=== PATIENT | female | born 1990 | race Caucasian/White ===

== ENCOUNTER 2024-08-04 20:42 | Emergency (ER) | payer BC ==
[2024-08-04] MEDS ORDERED: KETOROLAC 30 MG/ML INJ ONE (22:03)
[2024-08-04] MEDS ORDERED: ONDANSETRON 4 MG/2 ML VIAL ONE (22:03)
[2024-08-04] MEDS ORDERED: NA CHLORIDE 0.9% 1,000 ML ONE (22:03)
[2024-08-04 22:08] LABS: Absolute Eosinophils 0.1 K/uL (0-0.5); Absolute Lymphocytes (CBC) 2.2 K/uL (0.7-4.9); Absolute Monocytes 0.7 K/uL (0.1-1.3); Absolute Neutrophil 4.6 K/uL (1.8-8.0); Basophils % 0.5 % (0-1.3); Eosinophils % 1.4 % (0-4.4); Hematocrit 39.7 % (36.0-45.0); Hemoglobin 13.2 g/dL (12.0-15.0); Lymphocytes % 29.3 % (15.3-44.8); MCH 32.2 pg (27.0-35.0); MCHC 33.3 g/dL (32.0-36.0); MCV 96.6 fL (80-100); MPV 9.2 fL (7.6-11.3); Monocytes % 8.7 % (3.3-12.3); Neutrophils % 60.1 % (41.7-73.7); Platelets 221 thou/uL (152-406); RBC Red Blood Cell Count 4.11 M/uL (3.86-4.86); Red Cell Distribution Width 12.8 % (12.1-15.2)
[2024-08-04 22:22] LABS: Anion Gap 8.9 mEq/L (5.0-15.0); Bilirubin Total 0.5 mg/dL (0.2-1.0); Globulin 3.9 g/dL (2.3-3.5); Potassium 3.9 mEq/L (3.5-5.1); Protein, Total 7.9 g/dL (6.4-8.2)
[2024-08-04 22:36] LABS: Specific Gravity 1.027 (1.005-1.030)
[2024-08-04 22:42] LABS: Specific Gravity 1.027 (1.005-1.030); Sqamous Epithelial <5 /HPF (None Seen); Urine Bacteria None Seen /HPF (<20); Urine Bilirubin NEGATIVE (Negative); Urine Blood Negative (Negative); Urine Clarity Clear (Clear); Urine Color Light-Yellow (Yellow); Urine Culture Reflex Order NOT NEEDED; Urine Glucose NEGATIVE (Negative); Urine Ketones NEGATIVE (Negative); Urine Microscopic Reflex YN ORDER UMIC; Urine Mucus Slight /HPF (None Seen); Urine Nitrite NEGATIVE (Negative); Urine Protein NEGATIVE (Negative); Urine RBC <5 /HPF (None Seen); Urine Urobilinogen Normal (Normal); Urine WBC <5 /HPF (<5); Urine pH 5.5 (5.0-7.0)
--- NOTE | 2024-08-04 23:34 | RAD REPORT ---
EXAM DESCRIPTION: Transvaginal Study Probe CLINICAL HISTORY: 34 years Female, Possible migrated IUD;Abd pain TECHNIQUE: Real-time transvaginal sonographic imaging of the pelvis was performed. COMPARISON: None. FINDINGS: UTERUS: Uterus measures 8.8 x 4.6 x 5.2 cm. No focal myoma. ENDOMETRIUM: IUD in satisfactory position. No endometrial free fluid. OVARIES: The ovaries are normal in size with physiologic follicles; for which no further workup is wa rranted. Right ovary measures 3.3 x 1.9 x 3.1 cm; left ovary measures 2.3 x 1.2 x 1.4 cm. Doppler color flow with normal arterial and venous waveforms are seen within bilateral ovaries. ADNEXA: No adnexal mass or abnormality. FREE FLUID: No free fluid in the pelvic cul-de-sac. IMPRESSION: 1. IUD in satisfactory position. 2. Otherwise, negative pelvic ultrasound. Electronically signed by: Floyd Mead MD 08/04/2024 11:30 PM CDT N Due to temporary technical issues with the PACS/[employer] reporting system, reports are being signed by the in-house radiologist without review as a courtesy to ensure prompt reporting the interpreting radiologist is fully responsible for the content of the report. Transcribed Date/Time: 08/04/2024 11:34 PM
[2024-08-05] MEDS ORDERED: ONDANSETRON 4 MG/2 ML VIAL ONE (00:03)
[2024-08-05] MEDS ORDERED: MORPHINE 4 MG/ML SYR ONE (00:04)
--- NOTE | 2024-08-05 01:52 | RAD REPORT ---
CT ABDOMEN PELVIS WITH IV CONTRAST CLINICAL INDICATION: Abdominal pain. History of Iam's and . COMPARISON: Pelvic ultrasound 08/04/2024 TECHNIQUE: CT images of the abdomen and pelvis obtained following administration of intravenous contr ast. Multiplanar reformats were provided. Dose-optimization techniques such as automated exposure control, iterative reconstruction, and mA and/or kV adjustment for patient size was utilized for this examination. FINDINGS: LOWER CHEST: Unremarkable. LIVER: No suspicious mass lesion. BILIARY: Unremarkable. PANCREAS: Unremarkable. SPLEEN: Unremarkable. ADRENALS: Unremarkable. KIDNEYS/URETERS: Small 2 mm nonobstructive stone at upper pole of left kidney. No hydroureteronephros is. No suspicious mass lesion. BOWEL/STOMACH: Multiple mildly prominent small bowel loops without focal obstruction, likely reflecti ng ileus. APPENDIX: Appendix is not definitively visualized. No focal inflammation in right lower quadrant to s uggest acute appendicitis. MESENTERY/PERITONEUM: Small amount of free fluid in pelvis is nonspecific and can be physiologic for a female patient. RETROPERITONEUM: No adenopathy. URINARY BLADDER: Unremarkable. REPRODUCTIVE: Intrauterine device in place. VASCULAR: No aortic aneurysm. Prominent vascularity at the pelvis is a nonspecific finding and can be seen in pelvic congestion syndrome. ABDOMINAL/PELVIC WALL: Unremarkable. Umbilical ring in place. BONES: No acute findings Disc bulge at L4-5 and L5-S1 levels with associated borderline central canal narrowing. No compression deformity, nor osteolytic or sclerotic lesion. IMPRESSION: 1. Nonobstructive left nephrolithiasis. 2. Multiple mildly prominent small bowel loops without focal obstruction, likely reflecting ileus. 3. Small amount of free fluid in pelvis is nonspecific and can be physiologic for a female patient. 4. Prominent vascularity at the pelvis is a nonspecific finding and can be seen in pelvic congestio n syndrome. Electronically signed by: Mirta Rojo MD 08/05/2024 01:46 AM CDT Due to temporary technical issues with the PACS/[employer] reporting system, reports are being zhao d by the in-house radiologist without review as a courtesy to ensure prompt reporting the interpreting radiologist is fully responsible for the content of the report. Transcribed Date/Time: 08/05/2024 1:52 AM
--- NOTE | 2024-08-05 02:00 | ER ---
Nurse's Notes [facility] Name: Chio Ward Age: 34 yrs Sex: Female : 1990 Arrival Date: 08/04/2024 Time: 20:42 Bed 13 Private MD: Diagnosis: Lower abdominal pain, unspecified;Nephrolithiasis Presentation: 08/04 21:04 Chief complaint: Patient states: lower abdominal pain beginning 1330 radiating to right lg3 pelvis and back. Coronavirus screen: Client denies travel out of the [place] in the last 14 days. At this time, the client does not indicate any symptoms associated with coronavirus-19. Ebola Screen: No symptoms or risks identified at this time. Initial Sepsis Screen: Does the patient meet any 2 criteria? No. Patient's initial sepsis screen is negative. Does the patient have a suspected source of infection? No. Patient's initial sepsis screen is negative. Risk Assessment: Do you want to hurt yourself or someone else? Patient reports no desire to harm self or others. Onset of symptoms was August 04, 2024. 21:04 Method Of Arrival: Ambulatory lg3 21:04 Acuity: FLORESITA 3 lg3 Triage Assessment: 21:06 General: Appears in no apparent distress. comfortable, Behavior is calm, cooperative. lg3 Pain: Complains of pain in suprapubic area, right inguinal area and right iliac crest Pain radiates to low back area. EENT: No deficits noted. No signs and/or symptoms were reported regarding the EENT system. Neuro: No deficits noted. Ledesma Agitation-Sedation Scale (RASS): 0 - Alert and Calm Level of Consciousness is awake, alert, obeys commands, Oriented to person, place, time, situation. Cardiovascular: No deficits noted. Denies chest pain, shortness of breath, Capillary refill < 3 seconds Clubbing of nail beds is absent JVD is absent Patient's skin is warm and dry. Respiratory: No deficits noted. Airway Respiratory effort is even, unlabored, Respiratory pattern is regular, symmetrical. GI: Abdomen is flat, non-distended, Reports lower abdominal pain, cramping. : No signs and/or symptoms were reported regarding the genitourinary system. Derm: No deficits noted. No signs and/or symptoms reported regarding the dermatologic system. Skin is intact, is healthy with good turgor, Skin is dry, Skin is normal, Skin temperature is warm. Musculoskeletal: No deficits noted. No signs and/or symptoms reported regarding the musculoskeletal system. Circulation, motion, and sensation intact. Range of motion: intact in all extremities. 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 - Infectious Disease History:: Denies. - Social history:: Smoking status: Patient denies any tobacco usage or history of. Patient uses alcohol, only on a social basis. Patient/guardian denies using street drugs. Screenin:15 [facility] ED Fall Risk Assessment (Adult) History of falling in the last 3 months, kj2 including since admission No falls in past 3 months (0 pts) Confusion or Disorientation No (0 pts) Intoxicated or Sedated No (0 pts) Impaired Gait No (0 pts) Mobility Assist Device Used No (0 pt) Altered Elimination No (0 pt) Score/Fall Risk Level 0 - 2 = Low Risk. Abuse screen: Denies threats or abuse. Denies injuries from another. Nutritional screening: No deficits noted. Tuberculosis screening: No symptoms or risk factors identified. Assessment: 21:15 General: Appears in no apparent distress. uncomfortable, Behavior is calm, cooperative. kj2 Pain: Complains of pain in back and pelvis and suprapubic area Pain currently is 7 out of 10 on a pain scale. Neuro: Level of Consciousness is awake, alert, Oriented to person, place, time, situation. Cardiovascular: Patient's skin is warm and dry. Respiratory: Airway is patent Respiratory effort is even, unlabored. GI: Bowel sounds present X 4 quads. Abdomen is tender to palpation. : 22:44 Reassessment: Patient appears in no apparent distress at this time. Patient and/or kj2 family updated on plan of care and expected duration. Pain level reassessed. Patient is alert, oriented x 3, equal unlabored respirations, skin warm/dry/pink. 08/05 00:08 Reassessment: Patient appears in no apparent distress at this time. Patient and/or kj2 family updated on plan of care and expected duration. Pain level reassessed. Patient is alert, oriented x 3, equal unlabored respirations, skin warm/dry/pink. 01:15 Reassessment: Patient appears in no apparent distress at this time. Patient and/or kj2 family updated on plan of care and expected duration. Pain level reassessed. Patient is alert, oriented x 3, equal unlabored respirations, skin warm/dry/pink. 02:15 Reassessment: Patient appears in no apparent distress at this time. Patient and/or kj2 family updated on plan of care and expected duration. Pain level reassessed. Patient is alert, oriented x 3, equal unlabored respirations, skin warm/dry/pink. Vital Signs: 08/04 21:04 BP 129 / 88; Pulse 89; Resp 17 S; Temp 98.4(O); Pulse Ox 99% ; Weight 58.97 kg (R); lg3 Height 5 ft. 3 in. ; Pain 5/10; 21:15 BP 122 / 61; Pulse 85; Resp 18; Pulse Ox 100% ; kj2 22:47 BP 127 / 88; Pulse 88; Resp 18; Pulse Ox 100% ; kj2 08/05 00:08 BP 110 / 67; Pulse 92; Resp 18; Pulse Ox 100% on R/A; kj2 02:15 BP 112 / 77; Pulse 80; Resp 18; Temp 97.9; Pulse Ox 100% ; kj2 08/04 21:04 Body Mass Index 23.03 (58.97 kg, 160.02 cm) lg3 08/04 21:04 Pain Scale: Adult lg3 ED Course: 08/04 20:47 Patient arrived in ED. ra3 20:56 Damian Thurman FNP-C [facility]. dr5 20:56 Hank Nava MD is Attending Physician. dr5 21:06 Triage completed. lg3 21:06 Arm band placed on right wrist. lg3 21:15 Patient has correct armband on for positive identification. Bed in low position. Call kj2 light in reach. Side rails up X 1. Adult w/ patient. Provided Education on: CALL LIGHT. 21:44 Alicia Eden, RN is Primary Nurse. kj2 22:41 Assist provider with pelvic exam: Performed by Damian CRAWFORD. kj2 23:11 Transvaginal Study Probe In Process Unspecified. EDMS 08/05 01:07 CT Abd/Pelvis - IV Contrast Only In Process Unspecified. EDMS 02:16 IV discontinued, intact, bleeding controlled, No redness/swelling at site. Pressure kj2 dressing applied. Administered Medications: 02:15 Discontinued: ns 0.9% 1000 ml IV at 100 ml/hr once kj2 08/04 22:23 Drug: Ketorolac IVP 15 mg IVP once Route: IVP; Site: right antecubital; kj2 23:58 Follow up: Response: No adverse reaction kj2 22:27 Drug: Ondansetron IVP 4 mg IVP once; over 2 minutes Route: IVP; Site: right antecubital;kj2 23:58 Follow up: Response: No adverse reaction kj2 22:28 Drug: NS 0.9% IV 1000 ml IV at 100 ml/hr once Route: IV; Rate: 100 ml/hr; Site: right kj2 antecubital; 08/05 02:14 Not Given (Patient Refused): morphineor iv 4 mg IVP once over 4 mins kj2 02:14 Not Given (Patient Refused): ondansetron 4 mg IVP once; over 2 minutes kj2 Medication: 08/04 22:38 VIS not applicable for this client. kj2 Outcome: 08/05 01:59 Discharge ordered by . rn 02:16 Discharged to home ambulatory, with family, kj2 02:16 Condition: stable 02:16 Discharge instructions given to patient, Instructed on discharge instructions, follow up and referral plans. Demonstrated understanding of instructions, follow-up care, 02:22 Patient left the ED. kj2 Signatures: Dispatcher [employer] EDMS Hank Nava MD MD rn Able, Lacie, RN RN lg3 Ines Campuzano ra3 Alicia Eden RN RN kj2 Damian Thurman FNP-C FNP-Cdr5
--- NOTE | 2024-08-05 02:00 | EDPHYS ---
Physician Documentation [facility] Name: Chio Ward Age: 34 yrs Sex: Female : 1990 Arrival Date: 08/04/2024 Time: 20:42 Bed 13 Private MD: ED Physician Hank Nava HPI: 08/05 00:15 This 34 yrs old Female presents to ER via Ambulatory with complaints of dr5 Abdominal Pain. 00:15 The patient presents with abdominal pain in the lower abdomen, right lower quadrant. dr5 Onset: The symptoms/episode began/occurred at 13:30. The symptoms are described as burning, sharp. Modifying factors:. Severity of pain: in the emergency department the pain is a 6 / 10. Pt is a 34 year old female presenting with RLQ abdominal pain while having sexual intercourse with . Pt denies rough intercourse or anything out of the usual. Pt denies fever, vaginal bleeding, vaginal discharge, vaginal odor, nausea, vomiting, diarrhea. . 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 - Infectious Disease History:: Denies. - Social history:: Smoking status: Patient denies any tobacco usage or history of. Patient uses alcohol, only on a social basis. Patient/guardian denies using street drugs. ROS: 08/05 00:15 Constitutional: as per hpi dr5 Exam: 00:15 Constitutional: This is a well developed, well nourished patient who is awake, alert, dr5 and in no acute distress. Head/Face: Normocephalic, atraumatic. Eyes: Pupils equal round and reactive to light, extra-ocular motions intact. Lids and lashes normal. Conjunctiva and sclera are non-icteric and not injected. Cornea within normal limits. Periorbital areas with no swelling, redness, or edema. Cardiovascular: Regular rate and rhythm with a normal S1 and S2. Normal PMI, no JVD. No pulse deficits. Respiratory: Lungs have equal breath sounds bilaterally, clear to auscultation. No rales, rhonchi or wheezes noted. No increased work of breathing, no retractions or nasal flaring. 00:15 Abdomen/GI: Inspection: abdomen appears normal, Bowel sounds: normal, Palpation: moderate abdominal tenderness, in the right lower quadrant, 00:15 : Pelvic Exam: External exam: is normal, no appreciated Bartholin's cyst, no erythema, not excoriated, no evidence of foreign body, no lesions, Speculum exam: no bleeding is noted, no cervicitis, os that is closed, IUD string noted, Sexual behavior: the patient is sexually active, AILYN Vargas present during exam. also stayed at bedside., 00:15 Neuro: Exam negative for acute changes, Vital Signs: 08/04 21:04 BP 129 / 88; Pulse 89; Resp 17 S; Temp 98.4(O); Pulse Ox 99% ; Weight 58.97 kg (R); lg3 Height 5 ft. 3 in. ; Pain 5/10; 21:15 BP 122 / 61; Pulse 85; Resp 18; Pulse Ox 100% ; kj2 22:47 BP 127 / 88; Pulse 88; Resp 18; Pulse Ox 100% ; kj2 08/05 00:08 BP 110 / 67; Pulse 92; Resp 18; Pulse Ox 100% on R/A; kj2 02:15 BP 112 / 77; Pulse 80; Resp 18; Temp 97.9; Pulse Ox 100% ; kj2 08/04 21:04 Body Mass Index 23.03 (58.97 kg, 160.02 cm) lg3 08/04 21:04 Pain Scale: Adult lg3 MDM: 08/04 21:02 Medical Screening Exam initiated dr5 08/05 00:47 Differential diagnosis: Migrated IUD, Vaginal Tear, Appendicitis, Mesenteric Adenitis, dr5 Ovarian cyst. Data reviewed: vital signs, nurses notes. 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 Care significantly affected by the following Social Determinants of Health: Poor access to healthcare and/or lack of insurance. Counseling: I had a detailed discussion with the patient and/or guardian regarding. Awaiting: CT scan results. ED course: IV Toradol and Zofran given - reassessment completed and patient stated her pain hasn't changed and is still a 6/10. Labs and US results printed and discussed with patient and determined through joint decision making with patient to do CTAP to rule out other lower abdominal etiology such as appendicitis. Will trial Morphine for pain control. Blood work, UA, and US were unremarkable.. 01:25 Transition of care: After a detail discussion of the patient's case, care is dr5 transferred to Hank Nava MD. ED course: Care given to Dr. Nava - pending final CT AP . Spoke with patient with anticipation of discharge and PCP follow up. Pt didn't want morphine because her pain has improved and tolerable.. 08/04 21:44 Order name: CBC with Diff; Complete Time: 22: dr5 08/04 21:44 Order name: Test, Urine; Complete Time: 22:40 dr5 08/04 21:44 Order name: Urinalysis w/ reflexes; Complete Time: 22:42 dr5 08/04 21:44 Order name: CMP; Complete Time: 22:27 dr5 08/04 23:11 Order name: Transvaginal Study Probe; Complete Time: 17:03 EDVT 08/04 23:45 Order name: CT Abd/Pelvis - IV Contrast Only; Complete Time: 17:03 dr5 08/04 21:44 Order name: IV Saline Lock; Complete Time: 23:30 dr5 08/04 21:44 Order name: Labs collected and sent; Complete Time: 23:30 dr5 Administered Medications: 02:15 Discontinued: ns 0.9% 1000 ml IV at 100 ml/hr once kj2 08/04 22:23 Drug: Ketorolac IVP 15 mg IVP once Route: IVP; Site: right antecubital; kj2 23:58 Follow up: Response: No adverse reaction kj2 22:27 Drug: Ondansetron IVP 4 mg IVP once; over 2 minutes Route: IVP; Site: right antecubital;kj2 23:58 Follow up: Response: No adverse reaction 22:28 Drug: NS 0.9% IV 1000 ml IV at 100 ml/hr once Route: IV; Rate: 100 ml/hr; Site: right kj2 antecubital; 08/05 02:14 Not Given (Patient Refused): morphineor iv 4 mg IVP once over 4 mins kj2 02:14 Not Given (Patient Refused): ondansetron 4 mg IVP once; over 2 minutes kj2 Disposition: 01:59 Co-signature as Attending Physician, Hank Nava MD I agree with the assessment and rn plan of care. Disposition Summary: 08/05/24 01:59 Discharge Ordered Notes: Location: Home rn Condition: Stable rn Diagnosis - Lower abdominal pain, unspecified rn - Nephrolithiasis rn Followup: dr5 - With: Emergency Department - When: As needed - Reason: Worsening of condition Followup: dr5 - With: Private Physician - When: 1 - 2 days - Reason: Recheck today's complaints, Continuance of care, Re-evaluation by your physician Discharge Instructions: - Constipation, Adult rn - Kidney Stones rn - Dietary Guidelines to Help Prevent Kidney Stones rn - Discharge Summary Sheet dr5 - Abdominal Pain, Adult dr5 Forms: - Medication Reconciliation Form rn - Antibiotic rn wellness - Prescription Opioid Use rn - Patient Portal Instructions rn - Leadership Thank You Letter rn Signatures: Dispatcher [employer] EDVT Hank Nava MD MD rn Able, Lacie RN RN lg3 Alicia Eden RN RN kj2 Damian Thurman, SORORITY MOTHER-C SORORITY MOTHER-Cdr5 Corrections: (The following items were deleted from the chart) 08/04 21:44 21:44 CBC+H.LAB.BRZ ordered. [facility] EDVT 21:44 21:44 Test, Urine+UC.LAB.BRZ ordered. [facility] EDVT 21:44 21:44 Urinalysis+U.LAB.BRZ ordered. [facility] EDVT 21:44 21:44 COMPREHENSIVE METABOLIC PANEL+C.LAB.BRZ ordered. [facility] EDVT 22:15 22:15 Transvaginal Ob+US.RAD.BRZ ordered. [facility] EDVT 08/05 00:54 00:15 : Pelvic Exam: External exam: is normal, no appreciated Bartholin's cyst, no dr5 erythema, not excoriated, no evidence of foreign body, no lesions, Speculum exam: no bleeding is noted, no cervicitis, os that is closed, IUD string noted, Sexual behavior: the patient is sexually active, dr5
[2024-08-05 07:50] VITALS: O2SAT 100
[2024-08-05 08:04] VITALS: BP 112/77; TEMP 97.9
== END 2024-08-05 02:22 | disposition home or self-care (01) ==
LOC: ER 20:42
DX: N20.0 Calculus of kidney (principal)
CPT/HCPCS: 85025; 81001; 36415; 81025; 80053; 74177; 76830; Q9967; J2405; J7030; 96374; 96375; 99284